=== PATIENT | male | born 1975 | race Caucasian/White ===

== ENCOUNTER → 2018-02-14 07:49 | Outpatient (CLI) | payer BC, SELFPAY ==
--- NOTE | 2018-02-14 07:54 | US_ITS ---
US gallbladder HISTORY: ITS.REASON: RUQ PAIN ORDERING PHYSICIAN: Delfino Medel MD PATIENT AGE: 42 years Comparison: 05/13/2009, 05/16/2009 FINDINGS: PANCREAS: There is a fluid collection anterior to the body and tail the pancreas measuring 12 x 5 cm. This is incompletely imaged and may be better characterize with CT. LIVER: No focal liver lesions demonstrated. Homogeneous echogenicity. No intrahepatic biliary ductal dilatation evident RIGHT KIDNEY: Unremarkable. Normal size and echogenicity. No hydronephrosis GALLBLADDER: No gallstones, gallbladder wall thickening, pericholecystic fluid, or biliary dilatation. Common bile duct is 2 mm. IMPRESSION: 1. Unremarkable gallbladder ultrasound. No gallstones. 2. 12 cm x 5 cm fluid collection along the anterior and left lateral aspect of the pancreas. This is of uncertain etiology. A fluid collection was present in this area on 05/16/2009. Chronic pseudocyst is a consideration. Consider CT scan of the abdomen with contrast with pancreas protocol for further evaluation.
== END ==
PROVIDERS: Family Provider Family Medicine; PCP Family Medicine; Visit Provider Family Medicine
DX: R10.11 Right upper quadrant pain (principal)
CPT/HCPCS: 76705

== ENCOUNTER → 2018-03-09 09:51 | Outpatient (CLI) | payer BC, SELFPAY ==
--- NOTE | 2018-03-09 09:59 | NM_ITS ---
NM hepatobiliary wo pharm HISTORY: ITS.REASON: RUQ PAIN ORDERING PHYSICIAN: Delfino Medel MD PATIENT AGE: 42 years COMPARISON: None DOSE: 8.50 MCI TC CHoletec Inj into rt arm Fatty Meal Ensure FINDINGS: There is increased activity within the lateral aspect of the left hepatic lobe compared to the remaining liver with prominent activity also noted in the left bile duct.. Activity is present in the gallbladder by 45 minutes. Activity is present in the small bowel by 10 minutes. The gallbladder ejection fraction is calculated to be 34% The patient did not report pain or other symptoms with the fatty meal. IMPRESSION: 1. No evidence of common or cystic duct obstruction. 2. Slight delay in gallbladder visualization which may be seen with chronic inflammatory changes of the cystic duct. 3. Gallbladder ejection fraction at lower limits of normal 4. There is increased activity of the left hepatic lobe compared to the right with prominence of the biliary tree on the left. A partially obstructing central lesion is a consideration. Recommend CT of the abdomen without and with contrast with pancreatic protocol for further evaluation
== END ==
PROVIDERS: Family Provider Family Medicine; PCP Family Medicine; Visit Provider Family Medicine
DX: R10.11 Right upper quadrant pain (principal)
CPT/HCPCS: 78226; A9537

== ENCOUNTER → 2018-04-05 08:29 | Outpatient (CLI) | payer BC, SELFPAY ==
[2018-04-05 08:46] LABS: Blood Urea Nitrogen 21 mg/dL (7-18); Creatinine,Serum 1.09 mg/dL (0.70-1.30); Estimated Glomerular Filt Rate 73 ml/min (>60); GFR (African American) 89 ML/MIN (>60)
--- NOTE | 2018-04-05 09:16 | CT_ITS ---
CT abdomen w con CLINICAL INDICATION: ITS.REASON: PANCREATIC MASS ORDERING PHYSICIAN: Delfino Medel MD PATIENT AGE: 42 years COMPARISON: None TECHNIQUE: Axial images obtained with sagittal and coronal reformats. All CT scans at the facility use one or more dose reduction, viz: automated exposure control, ma/kV adjustment per patient size (including targeted exams where dose of the urinary bladder is to CTs with is matched to indication, i.e. head), or iterative reconstruction technique. PROCEDURE: Oral Contrast: None IV Contrast: 75 mL's of Isovue-370. FINDINGS: There is diffuse fatty liver infiltration.. There is a large complex fluid collection in the left upper quadrant. The tail of the pancreas runs through this collection. Maximum cephalad to caudad dimension is 13.7 cm, maximum transverse dimension 8 cm, and maximum AP dimension 10 cm. This is consistent with a chronic pseudocyst. This is along the dorsal aspect of the stomach and envelops the distal aspect of the body of the pancreas and tail the pancreas and lies along the anterior aspect of the left kidney. There is some minimal calcification within the cyst wall and some mild calcific debris along the inferior aspect of the cyst. No pancreatic ductal dilatation evident. The spleen is unremarkable. There are perigastric varices and perisplenic varices. A normal portal vein is not demonstrated. What appears to represent a recannulated portal vein with collaterals noted. A normal superior mesenteric vein is not demonstrated. No acute bony anomalies. No intestinal obstruction or free air. IMPRESSION: 1. Chronic left upper quadrant pseudocyst as described above measuring up to 14 cm in enveloping the tail the pancreas 2. 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
== END ==
PROVIDERS: PCP Family Medicine; Visit Provider Family Medicine
DX: K86.9 Disease of pancreas, unspecified (principal)
CPT/HCPCS: 36415; 74160; 82565; 84520; Q9967

== ENCOUNTER 2018-05-28 10:01 | Outpatient (CLI) | payer SELFPAY | END 2018-05-28 11:00 | disposition home or self-care (01) | LOC: UTC.OUT 10:03 | PROVIDERS: PCP Family Medicine; Visit Provider Physician Assistant | DX: Z02.4 Encounter for examination for driving license (principal) ==

== ENCOUNTER → 2019-05-26 09:18 | Outpatient (CLI) | payer SELFPAY ==
[2019-05-26 10:03] LABS: Apearance,Urine Clear (Clear); Bilirubin,Urine Negative (Negative); Blood, Urine Negative (Negative); Color,Urine Yellow (Yellow); Glucose,Urine (UA) Negative (Negative); Ketones,Urine Negative (Negative); Protein,Urine Trace (Negative); UTC Leukocyte Esterase,Urine Negative (Negative); UTC Nitrate,Urine Negative (Negative); Urobilinogen,Urine 0.2 EU/dl (0.2)
== END ==
PROVIDERS: PCP Family Medicine; Visit Provider Physician Assistant
DX: Z02.4 Encounter for examination for driving license (principal)
CPT/HCPCS: 81003

== ENCOUNTER 2022-04-29 12:20 | Emergency (ER) | payer BC, SELFPAY ==
[2022-04-29] VITALS (7 sets, daily range): BP systolic 99–118; BP diastolic 54–86; PULSE 83–109; RESP 16–17; TEMP 36.4; O2SAT 95–100; BMI 32.5
--- NOTE | 2022-04-29 12:19 | CT_ITS ---
FINAL REPORT CLINICAL HISTORY: TRAUMA head injury FINDINGS: Axial images of the head were obtained without contrast. Coronal reformatted images were also obtained.This study was performed with techniques to keep radiation doses as low as reasonably achievable (ALARA). Individualized dose reduction techniques using automated exposure control or adjustment of mA and/or kV according to the patient's size were employed. There is no evidence of intracranial hemorrhage or mass. The ventricular size is within normal limits. There is no evidence of shift of the midline structures. No abnormal extra axial fluid collection is identified. No skull abnormality is seen on the bone window images. IMPRESSION: No acute intracranial abnormality. Reviewed, Interpreted and Dictated by Joselo Hill III, MD Transcribed by Lori Maravilla Authenticated and [facility]
--- NOTE | 2022-04-29 12:19 | CT_ITS ---
FINAL REPORT CLINICAL HISTORY: trauma, pelvic pain. Hit by large log in the the back. FINDINGS: CT OF THE ABDOMEN AND PELVIS WITH CONTRAST Axial CT images of the abdomen and pelvis were obtained after the administration of intravenous contrast. Coronal reformatted images were also obtained and reviewed.This study was performed with techniques to keep radiation doses as low as reasonably achievable (ALARA). Individualized dose reduction techniques using automated exposure control or adjustment of mA and/or kV according to the patient's size were employed. Abdomen: The heart is normal in size. The liver has an unremarkable appearance, without evidence of mass or biliary ductal dilatation. The gallbladder is present. The spleen is unremarkable. No adrenal mass is present. There is a possible calcification in the superior pancreatic head. The kidneys are normal, without evidence of mass or hydronephrosis. The splenic vein is not identified and is likely chronically thrombosed. There are varices in the upper abdomen including involvement of the posterior stomach. The inferior vena cava is small caliber of uncertain significance. There are fractures of the 9th and 11th left ribs. There is no pneumoperitoneum. Pelvis: The appendix is not well-visualized. The urinary bladder is unremarkable. There are bilateral transverse process fractures at L2 and L4. There is a left transverse process fracture at L3. There is a fracture of the right side of the L5 vertebral body and left L5 lamina. There is a mild superior endplate compression fracture of L3 of uncertain age. There is a comminuted fracture of the right side of the sacrum with up to 13 mm of distraction of the fracture fragments. There is severe diastasis of the symphysis pubis up to 4.4 cm. There is hemorrhage within the diastasis. Urethral injury cannot be excluded. There are areas of increased attenuation consistent with acute hemorrhage and probable extravasation of contrast consistent with active bleeding. There is a small nondisplaced fracture of the distal sacrum. Presumed hemorrhage extends to the adductor musculature bilaterally. IMPRESSION: Severe pubic symphysis diastasis with active hemorrhage. Urethral injury not excluded. Fractures of multiple transverse processes in the right L5 vertebral body. Comminuted pelvic fractures. Fractures of the 9th and 11th left ribs. 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 Reviewed, Interpreted and Dictated by Joselo Hill III, MD Transcribed by Nic Caicedo Authenticated and [facility]
--- NOTE | 2022-04-29 12:19 | XR_ITS ---
FINAL REPORT CLINICAL HISTORY: trauma FINDINGS: A single portable view of the chest was obtained. The heart size and pulmonary vascularity are within normal limits. The mediastinum is within normal limits. No acute pulmonary abnormality is identified. The bony thorax is intact. IMPRESSION: No active cardiopulmonary disease. Reviewed, Interpreted and Dictated by Joselo Hill III, MD Transcribed by Lori Maravilla Authenticated and [facility]
--- NOTE | 2022-04-29 12:19 | CT_ITS ---
FINAL REPORT CLINICAL HISTORY: chest and abdominal trauma FINDINGS: CT CHEST W/CONTRAST Axial CT images of the chest were obtained with contrast. Coronal reformatted images were also obtained. This study was performed with techniques to keep radiation doses as low as reasonably achievable, (ALARA). Individualized dose reduction techniques using automated exposure control or adjustment of mA and/or KV according to the patient's size were employed. There is no evidence of mediastinal or hilar mass or adenopathy. No axillary mass or adenopathy is identified. On lung window images, no pulmonary mass or dominant pulmonary nodule is identified. There is mild bibasilar atelectasis. There is no pneumothorax. On the bone window images there are left 9th and 10th posterior rib fractures. IMPRESSION: Mild bibasilar atelectasis. No pneumothorax. Left 9th and 11th posterior rib fractures. Reviewed, Interpreted and Dictated by Joselo Hill III, MD Transcribed by Lori Maravilla Authenticated and [facility]
--- NOTE | 2022-04-29 12:19 | CT_ITS ---
FINAL REPORT CLINICAL HISTORY: Trauma, hit by large log FINDINGS: CT CERVICAL SPINE Axial CT images were performed through the cervical spine. Coronal and sagittal reformats were submitted and reviewed. This study was performed with techniques to keep radiation doses as low as reasonably achievable (ALARA). Individualized dose reduction techniques using automated exposure control or adjustment of mA and/or kV according to the patient's size were employed. FINDINGS: There is no acute fracture or subluxation. The vertebral alignment is normal. The prevertebral soft tissues are unremarkable. No significant spinal or neural foraminal canal stenosis is seen. There are mild degenerative changes. The facets are normally aligned. Limited images of the lung apices are unremarkable. IMPRESSION: No acute fracture. Reviewed, Interpreted and Dictated by Joselo Hill III, MD Transcribed by Nic Caicedo Authenticated and [facility]
--- NOTE | 2022-04-29 12:20 | PC.NURSE ---
Addendum entered by Liz Dockery RN 04/29/22 14:26: ER removed pt from long board but c-collar remains in place. Original Note: 1217-ER MD states fast scan negative states okay to cancel trauma alert but he will be working pt up as a trauma with a multiple CTS and xrays
--- NOTE | 2022-04-29 12:20 | PC.NURSE ---
pt arrived via EMS pt has in c-spine immobilization and on long spine board pt alert, oriented x3, pt denies LOC. ER MD at BS upon arrival of pt.
--- NOTE | 2022-04-29 12:21 | XR_ITS ---
FINAL REPORT CLINICAL HISTORY: pelvic pain, TRUAMA FINDINGS: AP PELVIS: A single view of the pelvis was obtained. There is symphysis pubis diastasis up to approximately 5.8 cm. There are fractures of the mid and right sacrum with up to 10 mm of distraction. IMPRESSION: Pelvic fractures with severe symphysis pubis diastasis. Reviewed, Interpreted and Dictated by Joselo Hill III, MD Transcribed by Nic Caicedo Authenticated and [facility]
--- NOTE | 2022-04-29 12:24 | HMH.EDTRAUMA ---
Discharge Plan Disposition Patient Disposition: Xfer Other Prescriptions Prescriptions: No Action Tubersol 5 tub. unit /0.1 mL solution 0.1 ml INTRADERMA ONCE Qty: 0.1 0RF tramadol 50 MG tablet 50 mg PO NEEDED PRN (Reason: Moderate Pain) metformin 1,000 MG tablet 1,000 mg PO BID fenofibrate nanocrystallized 145 MG tablet 145 mg PO DAILY sitagliptin 100 MG tablet 100 mg PO DAILY Referrals Follow up/Referrals: Provider,Referral, MD [Primary Care Provider] - See instructions Clinical Impressions Clinical Impression: Closed pelvic fracture, Hemorrhage of pelvic artery, Critical polytrauma, Abrasion, multiple sites, Accidentally struck by falling tree Discharge ED Provider: Ubaldo Holden Trauma Alert The Trauma Alert Section documentation for [id number] Frederic Moya was populated with data that defaulted in from the water treatment technician in the Trauma Alert Triage Assessment on f_Reg Service Date] to provide within this report, the status of the patient on arrival to the ED during the Trauma Alert. Arrival Mode of Arrival: EMS Date of Symptom Onset: 04/29/22 Accident Information Trauma Date: 04/29/[address]: Outdoors Pre-Hospital Care Pre-Hospital Care Given: Yes Pre-Hospital Care History Oxygen in Use: No Mechanical Airway: No Glascow Coma Scale Coma scale eye opening: Spontaneous Coma scale motor response: Obeys commands Coma scale verbal response: Oriented Coma scale total: 15 Trauma Score Respiratory Effort- Trauma Score: Normal Systolic Blood Pressure - Trauma Score: 120 Capillary Refill: < 3 Seconds Trauma Score: 10 Immunization Status Hx Immunizations Up to Date: Yes Hx Tetanus Toxoid Vaccination: Yes C-Spine/Immobilization C-Spine Immobilization Present: Yes Respiratory Status Bilateral Throughout: Breath Sounds: Clear Abdomen Abdomen Description: Flat, Tender, Guarding and Rigid Trauma HPI General Stated Complaint: Trauma; Tree limb fell on back Time Seen by Provider: 04/29/22 12:29 Mode of Arrival: EMS History of Present Illness HPI narrative: 47-year-old male brought in as trauma alert via BLS crew for injury sustained after a tree fell on him. He was briefly pinned into the tree but able to be extricated, was nonambulatory on scene. There was delay in arrival due to him being approximately [address] and difficulty gaining access. He was placed in cervical collar and long spine board, fully immobilized. He denies head strike or loss of consciousness, denies midline cervical spine pain. He does report significant pain in the left lateral chest wall the left flank and left thoracic region. He states pain is markedly exacerbated with trying to keep legs flat and it feels better when they are elevated otherwise he has significant pain in the lower back. Denies numbness, tingling, incontinence. No other treatments prior to arrival Related Data Home Medications Medication Instructions Recorded Confirmed fenofibrate nanocrystallized 145 145 mg PO DAILY Cholesterol 06/23/18 05/05/21 mg tablet metformin 1,000 mg tablet 1,000 mg PO BID DM 06/23/18 05/05/21 sitagliptin 100 mg tablet 100 mg PO DAILY \ 06/23/18 05/05/21 tramadol 50 mg tablet 50 mg PO NEEDED PRN Moderate 06/23/18 05/05/21 Pain Allergies Allergy/AdvReac Type Severity Reaction Status Date / Time avocado Allergy extremely Verified 05/05/21 11:34 itchy irritated eyes and severe abdominal pain PFSH PFSH Social History Smoking Status: Former smoker alcohol intake: never substance use type: denies use current occupational status: employed Travel in the last 8 weeks: None ROS Obtained: Yes Systems reviewed as appropriate & no additional complaints except as documented Constitutional Constitutional: Reports system reviewed and no additional complaints, except as documen
[2022-04-29 12:33] LABS: Basophils # 0.1 K/mm3 (0-0.2); Basophils % 0.3 % (0.1-2.0); Eosinophils # 0.2 K/mm3 (0.0-0.4); Eosinophils % 0.9 % (0.1-12.0); Hematocrit 43.2 % (42.0-52.0); Hemoglobin 13.8 g/dL (14.1-18.0); Lymphocytes # 2.6 K/mm3 (0.7-4.5); Lymphocytes % 11.9 % (10-50); Mean Corpuscular Hemoglobin 30.2 pg (27.0-31.2); Mean Corpuscular Volume 94.2 fl (80-94); Mean Platelet Volume 8.2 fl (7.4-10.4); Monocytes # 0.7 K/mm3 (0.1-1.0); Monocytes % 3.4 % (1.7-9.3); Neutrophils # 18.4 K/mm3 (1.8-7.8); Neutrophils % 83.5 % (37.0-80.0); Platelet Count 332 K/mm3 (142-424); Red Blood Count 4.58 M/mm3 (4.60-6.20); Red Cell Distribution Width 12.7 % (11.5-17.5); White Blood Count 22.1 K/mm3 (4.8-10.8)
[2022-04-29 12:34] LABS: MANUAL DIFFERENTIAL MANUAL DIFFERENTIAL (MANUAL DIFF)
--- NOTE | 2022-04-29 12:37 | PC.NURSE ---
rad at for portable xrays
[2022-04-29 12:43] LABS: Chloride 100 mmol/L (98-107); Lymphocytes % 14 % (10-50); Monocytes % 5 % (2-9); Neutrophils % 81 % (42-76); Platelet Estimate Normal; Potassium 4.3 mmoL/L (3.5-5.1); RBC Morphology Normal; Sodium 138 mmol/L (136-145); Total Cells Counted 100
[2022-04-29 12:45] LABS: Alanine Aminotransferase 32 U/L (12-78); Alkaline Phosphatase 81 U/L (38-126); Anion Gap 16.3 mEq/L (5-15); Aspartate Amino Transferase 63 U/L (17-59); Bilirubin,Total 0.7 mg/dl (0.2-1.3); Blood Urea Nitrogen 16 mg/dl (9-20); Calcium 9.2 mg/dl (8.4-10.2); Carbon Dioxide 26 mmol/L (22.0-30.0); Creatinine Clearance Estimated 126 mL/min (50-200); Estimated Glomerular Filt Rate 79 ml/min (>60); GFR (African American) 96 ML/MIN (>60); Glucose 318 mg/dl (74-100); Lipase 151 U/L (23-300)
--- NOTE | 2022-04-29 12:45 | PC.NURSE ---
pt to CT via stretcher transported per ER staff and rad staff. Rad staff requested that ER MD view pt pelvic xray after portable xray was done. ER MD stated to bind pt pelvis. Pt pelvis bound with a sheet prior to moving pt from stretcher to CT table.
[2022-04-29 12:46] LABS: Albumin Level 4.5 g/dl (3.5-5.0); Albumin/Globulin Ratio 1.6 (1.1-1.8); Globulin 2.9 g/dL (1.3-3.2); Magnesium 1.8 mg/dl (1.6-2.3); Total Protein,Serum 7.4 g/dl (6.3-8.2)
[2022-04-29 12:47] LABS: Ethyl Alcohol < 10 mg/dl (0-10)
--- NOTE | 2022-04-29 12:54 | PC.NURSE ---
approx 1230- when pt was log rolled pt reported that he felt like he was going to use the bathroom on him self. (EVA BRAN was at BS and assessing pt during log roll and EVA BRAN removed back board from under pt.) while assessing pt I asked him if he meant he need to urinate or have a bm. Pt reported he felt like he was going to have a BM on himself when we rolled him. Asked pt to squeeze his buttocks together, pt was able to do so. Notified EVA BRAN that I asked pt about this and pt was reporting when we log rolled him pt felt like he was going to have a BM on himself but pt was able to squeeze buttocks together when asked. Pt in c-spine precautions and remains laying flat.
[2022-04-29 13:04] LABS: Troponin I < 0.01 ng/ml (0.00-0.034)
--- NOTE | 2022-04-29 13:04 | PC.NURSE ---
pt returned from CT via stretcher, EVA BRAN at discussing POC with pt, pt remains in c-collar and sheet on pelvis for binding. Pt requesting more pain medication, ER aware.
--- NOTE | 2022-04-29 13:05 | PC.NURSE ---
has been called to transfer patient to their facility.
--- NOTE | 2022-04-29 13:13 | PC.NURSE ---
EVA BRAN speaking with [facility]
--- NOTE | 2022-04-29 13:16 | PC.NURSE ---
pt accepted to ER per Dr. Diallo
--- NOTE | 2022-04-29 13:16 | PC.NURSE ---
contacting [facility] for transfer
--- NOTE | 2022-04-29 13:18 | PC.NURSE ---
[place] [facility] with [facility] accepted transfer of pt ETA 22 minutes
--- NOTE | 2022-04-29 13:30 | PC.NURSE ---
[facility] called giving a 5 minute ETA
--- NOTE | 2022-04-29 13:41 | PC.NURSE ---
report called to omkar steiner rn at ER at this time
[2022-04-29 13:45] LABS: Appearance,Urine CLEAR (Clear); Bilirubin,Urine Negative (Negative); Blood, Urine 3+ (Negative); Color,Urine YELLOW (Yellow); Glucose,Urine (UA) 3+ (Negative); Ketones,Urine Negative (Negative); Leukocyte Esterase,Urine Negative (Negative); Microscopic, Urine URINE MICROSCOPIC (MICROSCOPIC); Nitrate,Urine Negative (Negative); Protein,Urine 2+ (Negative); Specific Gravity, Urine 1.015 (1.005-1.030); Urobilinogen,Urine 0.2 EU/dl (0.2)
--- NOTE | 2022-04-29 13:45 | PC.NURSE ---
[facility] staff at BS
[2022-04-29 14:08] LABS: Squamous Epithelial Cell,Urine Occasional #/hpf (0-5)
--- NOTE | 2022-04-29 14:11 | PC.NURSE ---
called to give them a pt update (pt bp dropped with [facility] at ). [facility] staff started a unit of blood on pt, pt had dropped his bp, pt pale in color and pt was was having SOA. spoke with augustine azevedo
== END 2022-04-29 13:45 | disposition short-term general hospital (02) ==
PROVIDERS: Emergency Provider Emergency Medicine
DX: R07.89 Other chest pain (principal); R10.32 Left lower quadrant pain; M54.6 Pain in thoracic spine; M54.50 Low back pain, unspecified; Z79.84 Long term (current) use of oral hypoglycemic drugs; Z79.1 Long term (current) use of non-steroidal anti-inflammatories (NSAID); Z79.899 Other long term (current) drug therapy; Z91.018 Allergy to other foods; Z87.891 Personal history of nicotine dependence; W22.8XXA Striking against or struck by other objects, initial encounter
CPT/HCPCS: 51702; 70450; 71045; 71260; 72125; 72170; 74177; 80053; 81001; 83690; 83735; 84484; 85007; 85025; 96361; 96374; 96375; 99285; J2405; Q9967

== ENCOUNTER → 2022-06-06 09:15 | Outpatient (CLI) | payer BC, SELFPAY ==
[2022-06-06 09:36] LABS: Basophils # 0.1 K/mm3 (0-0.2); Basophils % 0.8 % (0.1-2.0); Eosinophils # 0.2 K/mm3 (0.0-0.4); Eosinophils % 3.7 % (0.1-12.0); Hematocrit 46.8 % (42.0-52.0); Hemoglobin 15.2 g/dL (14.1-18.0); Mean Corpuscular HGB Conc 32.4 g/dL (31.8-35.4); Mean Corpuscular Hemoglobin 31.2 pg (27.0-31.2); Mean Corpuscular Volume 96.1 fl (80-94); Mean Platelet Volume 8.2 fl (7.4-10.4); Monocytes # 0.2 K/mm3 (0.1-1.0); Neutrophils # 4.7 K/mm3 (1.8-7.8); Neutrophils % 76.4 % (37.0-80.0); Platelet Count 173 K/mm3 (142-424); Red Blood Count 4.87 M/mm3 (4.60-6.20); Red Cell Distribution Width 14.3 % (11.5-17.5); White Blood Count 6.1 K/mm3 (4.8-10.8)
[2022-06-06 10:03] LABS: Alanine Aminotransferase 14 U/L (12-78); Albumin Level 4.6 g/dl (3.5-5.0); Albumin/Globulin Ratio 1.6 (1.1-1.8); Alkaline Phosphatase 166 U/L (38-126); Anion Gap 15.1 mEq/L (5-15); Aspartate Amino Transferase 22 U/L (17-59); Bilirubin,Total 0.5 mg/dl (0.2-1.3); Blood Urea Nitrogen 19 mg/dl (9-20); Calcium 10.5 mg/dl (8.4-10.2); Carbon Dioxide 28 mmol/L (22.0-30.0); Chloride 98 mmol/L (98-107); Chol/HDL Ratio 4.9 (1-3.5); Cholesterol 132 mg/dl (140-200); Estimated Glomerular Filt Rate 103 ml/min (>60); GFR (African American) 124 ML/MIN (>60); Globulin 2.9 g/dL (1.3-3.2); Glucose 136 mg/dl (74-100); HDL Cholesterol 27 mg/dl (40-60); Potassium 5.1 mmoL/L (3.5-5.1); Sodium 136 mmol/L (136-145); Total Protein,Serum 7.5 g/dl (6.3-8.2); Triglycerides 262 mg/dl (30-150); VLDL Cholesterol 52 mg/dL (0-40)
[2022-06-06 10:19] LABS: Direct LDL Cholesterol 76.04 mg/dL (100-129)
[2022-06-06 11:23] LABS: Hemoglobin A1C 5.3 % (4.0-6.0)
== END ==
PROVIDERS: PCP Nurse Practitioner Family; Referring Provider Nurse Practitioner Family; Visit Provider Nurse Practitioner Family
DX: E11.65 Type 2 diabetes mellitus with hyperglycemia (principal); E78.2 Mixed hyperlipidemia; Z79.84 Long term (current) use of oral hypoglycemic drugs
CPT/HCPCS: 36415; 80053; 80061; 83036; 85025

== ENCOUNTER 2022-08-04 07:52 | Outpatient (RCR) | payer BC, SELFPAY | END 2022-08-04 07:55 | disposition home or self-care (01) | LOC: PT 07:52 | PROVIDERS: PCP Nurse Practitioner Family; Visit Provider Orthopaedic Surgery | DX: R10.2 Pelvic and perineal pain (principal) | CPT/HCPCS: 97163 ==